=== PATIENT | male | born 1965 | race Caucasian/White ===

== ENCOUNTER 2022-06-11 00:32 | Day surgery (SDC) | payer OTHER, SELFPAY ==
[2022-05-29 10:31] VITALS: BMI 28.8
[2022-06-11 06:46] VITALS: BP 112/74; PULSE 77; RESP 18; TEMP 36.4; O2SAT 100
[2022-06-11] MEDS: LACTATED RINGERS 1,000 ML 150 ML IV CONT (06:55)
--- NOTE | 2022-06-11 07:22 | P.HP_ITS ---
History of Present Illness History of Present Illness Consent: Risks, benefits, and alternatives have been discussed and questions answered. Patient agrees to proceed with procedure. Chief complaint: neoplasm screening Narrative: Magdiel Zhao is a 56 year old male Presents for screening colonoscopy. Patient's current weight appetite and bowel movements are normal. Patient denies abdominal pain. He has had no bleeding. Family history is noncontributory. Review of Systems Review of Systems: Review of systems noncontributory. [facility] [place] Family History Family History Father Elevated cholesterol Hypothyroidism Mother Acute myocardial infarction Grandparent Diabetes mellitus Social History Social History Smoking status: Never smoker Second hand tobacco smoke exposure: Yes Alcohol intake: current Drinks per week: 2 Substance use: never Substance use type: does not use Living arrangements: with family Gender identity (if verbalized by the patient): Male Sexual Orientation (if Verbalized by the Patient): Straight or Heterosexual Spiritual care concerns: No Meds Home Medications and Allergies Home Medications Medication Instructions Recorded Confirmed Type aspirin 81 mg tablet,delayed 81 mg PO DAILY 12/27/21 05/29/22 History release (Adult Low Dose Aspirin) amlodipine 10 mg tablet 10 mg PO DAILY #90 tabs 04/01/22 05/29/22 Rx cyanocobalamin (vitamin B-12) 500 250 mcg PO DAILY 04/25/22 05/29/22 History mcg tablet (Vitamin B-12) lisinopril 20 mg tablet 20 mg PO DAILY 04/25/22 05/29/22 History Allergies Allergy/AdvReac Type Severity Reaction Status Date / Time No Known Allergies Allergy Verified 06/11/22 06:44 Vital Signs Vital Signs - 24 hr 06/11/22 06:46 Temperature 97.5 F L Pulse Rate 77 Respiratory Rate 18 Blood Pressure 112/74 Pulse Oximetry 100 Oxygen Delivery Room Air Exam Narrative: Physical exam reveals patient to be alert. Vital signs stable. HEENT exam is unremarkable. Patient is anicteric. Lungs are clear to auscultation and percussion. Heart is without murmur or extra sounds. Abdomen bowel sounds are present soft nontender with no organomegaly. Digital external rectal exam is normal. Assessment and Plan Assessment and plan (1) Screening for colon cancer: Code(s): Z12.11 - Encounter for screening for malignant neoplasm of colon Status: Acute Assessment and Plan: Patient presents for screening colonoscopy. He appears to be at average risk for colon polyps. Further recommendations may be given after endoscopy.
--- NOTE | 2022-06-11 07:58 | P.PNAN_ITS ---
Anes - Initial Pre Proc Eval Procedure: Operation Date: 06/11/22 08:00 Proposed Procedures p Screening Colonoscopy - Harpreet Farley MD Date/Time: 06/11/22 07:58 Surgeon: Harpreet Farley MD Pre Op Diagnosis: neoplasm screening Patient Data Age: 56 Gender: M Height: 1.91 m Weight: 105.7 kg Last Vital Signs Temp 97.5 F L 06/11/22 06:46 Pulse 77 06/11/22 06:46 Resp 18 06/11/22 06:46 BP 112/74 06/11/22 06:46 Pulse Ox 100 06/11/22 06:46 O2 Del Method Room Air 06/11/22 06:46 Allergies Allergy/AdvReac Type Severity Reaction Status Date / Time No Known Allergies Allergy Verified 06/11/22 06:44 Home Medications Medication Instructions Recorded Confirmed Type aspirin 81 mg tablet,delayed 81 mg PO DAILY 12/27/21 05/29/22 History release (Adult Low Dose Aspirin) amlodipine 10 mg tablet 10 mg PO DAILY #90 tabs 04/01/22 05/29/22 Rx cyanocobalamin (vitamin B-12) 500 250 mcg PO DAILY 04/25/22 05/29/22 History mcg tablet (Vitamin B-12) lisinopril 20 mg tablet 20 mg PO DAILY 04/25/22 05/29/22 History Patient hx anesthesia problems: none Family hx anesthesia problems: none Results Review: All pre-operative results and documents have been reviewed as part of the pre- operative evaluation. [facility] Family History Family History Father Elevated cholesterol Hypothyroidism Mother Acute myocardial infarction Grandparent Diabetes mellitus Social History Social History Smoking status: Never smoker Second hand tobacco smoke exposure: Yes Alcohol intake: current Drinks per week: 2 Substance use: never Substance use type: does not use Living arrangements: with family Gender identity (if verbalized by the patient): Male Sexual Orientation (if Verbalized by the Patient): Straight or Heterosexual Spiritual care concerns: No Anes - Eval Final PreProcedure Day of Procedure 06/11/22 07:58 Patient weight: normal Heart: regular rate and rhythm Lungs: clear to auscultation Airway: Mallampati scale class II Neurological: alert and oriented Last oral intake: >/= 8 hours ASA classification: II Emergent: no Anesthetic plan: proceed Anesthesia type and monitoring: general GIVS and standard monitoring Results Review: All pre-operative results and documents have been reviewed as part of the pre- operative evaluation. Informed Consent: The patient's anesthetic plan and its attendant risks and benefits were discussed with the patient/family/POA. Questions were solicited and answers provided to the satisfaction of the patient/family/POA.
[2022-06-11 08:27] VITALS: BP 112/75; PULSE 72; RESP 22; O2SAT 98
[2022-06-11 08:37] VITALS: BP 118/81; PULSE 60; RESP 20; O2SAT 97
[2022-06-11 08:51] VITALS: BP 118/86; PULSE 59; RESP 18; O2SAT 100
== END 2022-06-11 09:18 | disposition home or self-care (01) ==
PROVIDERS: PCP Physician Assistant Medical; Visit Provider Internal Medicine Gastroenterology
PROC: 0DJD8ZZ Inspection of Lower Intestinal Tract, Via Natural or Artificial Opening Endoscopic (ICD-10-PCS; CPT 45378; principal; 2022-06-11 08:00)
DX: Z12.11 Encounter for screening for malignant neoplasm of colon (principal); Z79.82 Long term (current) use of aspirin
CPT/HCPCS: 45378; J2704; J7120